=== PATIENT | male | born 1935 | race Hispanic/Latino ===

== ENCOUNTER 2018-07-05 12:10 | Emergency (ER) | payer MEDICARE ==
[~2018-07-05] VITALS: Ht 172.7 cm; Wt 109.4 kg
[~2018-07-05 12:10] MED LIST: AMOXICILLIN500 MG PO; CEPHALEXIN500 MG PO; GAS RELIEF125 M1 PO; LISINOPRIL2.5 MG PO; MECLIZINE HCL25 MG PO; OMEPRAZOLE20 MG PO
[2018-07-05] MEDS ORDERED: LISINOPRIL-HCT1 EACH PO (12:45)
[2018-07-05] MEDS ORDERED: LISINOPRIL20 MG PO (14:09)
--- NOTE | 2018-07-05 19:54 | EKG ---
[facility] [address] [facility] [place], [place] [address] Signed Sinus rhythm with 1st degree AV block Otherwise normal ECG No previous ECGs available Confirmed by SCOTT CURRY MD [id number] on 07/05/2018 7:54:18 PM Electronically Signed By: SCOTT CURRY MD 07/05/181953 PATIENT NAME: LEONARDA BAGLEY Electrocardiogram DATE OF : 37 PHYSICIAN: SCOTT CURRY MD REPORT #: [id number] REPORT IS CONFIDENTIAL AND NOT TO BE RELEASED WITHOUT AUTHORIZATION
== END 2018-07-05 14:23 | disposition home or self-care (01) ==
LOC: ED 12:10
DX: R42 Dizziness and giddiness (principal); F41.9 Anxiety disorder, unspecified; I10 Essential (primary) hypertension; Z79.899 Other long term (current) drug therapy
CPT/HCPCS: 70450; 71045; 80053; 84484; 85025; 93005; 93010; 99284-25